=== PATIENT | male | born 1955 | race Caucasian/White ===

== ENCOUNTER → 2017-10-12 | Outpatient (CLI) | payer OTHER ==
--- NOTE | 2017-10-12 16:25 | CTL ---
EXAMINATION TYPE: CT Low Dose Lung DATE OF EXAM ORDERED: 10/12/2017 HISTORY: Personal history of tobacco abuse. Lung cancer screening CT DLP: 105.[address] CTDI: 2.7 mGy Automated exposure control for dose reduction was used. SCREENING VISIT: First COMPARISON: None TECHNIQUE: Low dose computed tomography scan was performed through the chest at 1 mm thick sections a nd reconstructed images in the coronal plane at [address] DIAGNOSTIC QUALITY: Satisfactory FINDINGS: LUNG NODULES: None. LUNGS: COPD: Severity: Very mild right apical paraseptal emphysematous changes with few medial blebs. Fibrosis: Severity: None Lymph nodes: Nonenlarged Other findings: Very small morganii hernia without andressa herniation of mesenteric fat is seen on seri es 7 image 118 and series 3 image 304 measuring 1.9 cm. RIGHT PLEURAL SPACE: Effusion: None Calcification: None Thickenin mm pleural thickening adjacent to the seventh right lateral rib on image 196. Pleural p arenchymal scarring is seen at the right lung base on image 276. Pneumothorax: None LEFT PLEURAL SPACE: Effusion: None Calcification: None Thickening: None Pneumothorax: None HEART: Heart Size: Normal Coronary calcification: Few calcifications within the left anterior descending coronary artery and ci rcumflex coronary artery Pericardial effusion: None OTHER FINDINGS: Upper abdomen: Unremarkable Bony thorax: Mild multilevel degenerative changes of the thoracic spine and probable bone island of a n upper thoracic vertebral body that is punctate are noted. No evidence of acute fracture of the osse ous structures. Supraclavicular region: No adenopathy. IMPRESSION: No pulmonary nodules. Very minimal background paraseptal right apical centrilobular emphy sematous change. FOLLOW UP CT CHEST RECOMMENDATION: Follow-up annual low dose CT is recommended in [address] LUNG RAD: Lung-Rad 1 Negative
== END | disposition home or self-care (01) ==
LOC: RADCTMAIN 15:54
PROVIDERS: ATTEND Family Medicine
DX: Z12.2 Encounter for screening for malignant neoplasm of respiratory organs (principal); J43.2 Centrilobular emphysema; F17.200 Nicotine dependence, unspecified, uncomplicated